=== PATIENT | male | born 1990 | race Caucasian/White ===

== ENCOUNTER 2021-05-10 12:16 | Emergency (ER) | payer OTHER ==
[2021-05-10 12:33] VITALS: BP 131/72; PULSE 64; TEMP 98; BMI 23.6
[2021-05-10 13:32] LABS: URINE APPEARANCE CLEAR; URINE BILIRUBIN NEGATIVE (NEGATIVE); URINE COLOR YELLOW; URINE GLUCOSE (UA) NEGATIVE (NEGATIVE); URINE KETONE NEGATIVE (NEGATIVE); URINE LEUK ESTERASE NEGATIVE (NEGATIVE); URINE NITRITE NEGATIVE (NEGATIVE); URINE PROTEIN NEGATIVE (NEGATIVE); URINE UROBILINOGEN 0.2 mg/dL (0.2-1.0)
== END 2021-05-10 14:21 | disposition home or self-care (01) ==
LOC: JERFT 12:16
PROC: 3E0233Z Introduction of Anti-inflammatory into Muscle, Percutaneous Approach (ICD-10-PCS; principal; 2021-05-10)
DX: N45.1 Epididymitis (principal)
CPT/HCPCS: 36415; 76870-TC; 81003; 87086; 87491; 87591; 96372; 99284-25

== ENCOUNTER 2022-08-03 18:33 | Emergency (ER) | payer OTHER ==
[2022-08-03 18:59] VITALS: BP 128/75; PULSE 80; RESP 18; TEMP 98; BMI 22.8
[2022-08-03] MEDS ORDERED: KETOROLAC TROMETHAMINE 10 MG TABLET PO ONE ×2 (19:54→20:11)
[2022-08-03 21:01] LABS: PH,URINE 7.5 (5.0-8.0); URINE APPEARANCE CLOUDY; URINE BILIRUBIN NEGATIVE (NEGATIVE); URINE COLOR YELLOW; URINE GLUCOSE (UA) NEGATIVE (NEGATIVE); URINE KETONE TRACE (NEGATIVE); URINE LEUK ESTERASE NEGATIVE (NEGATIVE); URINE NITRITE NEGATIVE (NEGATIVE); URINE PROTEIN TRACE (NEGATIVE); URINE UROBILINOGEN 0.2 mg/dL (0.2-1.0)
[2022-08-03] MEDS ORDERED: LIDOCAINE HCL/PF 1% SDV 5ML VIAL ONE (22:10)
== END 2022-08-03 22:37 | disposition home or self-care (01) ==
LOC: JER 18:33
PROC: 3E023GC Introduction of Other Therapeutic Substance into Muscle, Percutaneous Approach (ICD-10-PCS; principal; 2022-08-03)
DX: N45.1 Epididymitis (principal)
CPT/HCPCS: 36415; 76870-TC; 81003; 87491; 87591; 99284-25